=== PATIENT | female | born 1945 | race African-American/Black ===

== ENCOUNTER 2020-07-16 22:20 | Inpatient (IN) | payer MEDICARE, MEDICAID ==
[~2020-07-16] VITALS: Ht 167.6 cm; Wt 105.7 kg
--- NOTE | 2020-07-16 22:40 | NUR ---
THE PATIENT [id number] FROM [place] C/O GENERALIZED BODY PAIN RAITING 09/04. THE PATIENT IS AAO X3. DENIES SOB. RESPIRATION REGULAR AND UNLABORED. THE PATIENT PLACED ON A MONITOR. WARM BLANKET PROVDIED FOR COMFORT. WILL CONTINUE TO MONITOR.
[2020-07-16] MEDS ORDERED: ONDANSETRON HCL/PF 4 MG/2 ML VIAL IVP ONE (23:00)
[2020-07-16] MEDS ORDERED: hydrALAZINE HCL IV 20 MG VIAL IV ONE (23:00)
[2020-07-16] MEDS ORDERED: PANTOPRAZOLE 40 MG VIAL IV ONE (23:00)
[2020-07-16] MEDS ORDERED: MAG HYDROX/AL HYDROX/SIMETH 30 ML UDC PO ONE (23:00)
[2020-07-16] MEDS ORDERED: MAG HYDROX/AL HYDROX/SIMETH 30 ML UDC ONE (23:53)
[2020-07-16] MEDS ORDERED: ONDANSETRON HCL/PF 4 MG/2 ML VIAL ONE (23:53)
[2020-07-16] MEDS ORDERED: PANTOPRAZOLE 40 MG VIAL ONE (23:53)
[2020-07-17 00:01] LABS: BASOPHILS % (AUTO) 0.9 % (0.0-2.0); HEMATOCRIT 32 % (33-45); HEMOGLOBIN 10.7 g/dL (11.5-14.8); LYMPHOCYTES # (AUTO) 0.8 /CMM (0.8-4.8); LYMPHOCYTES % (AUTO) 16.3 % (20.0-44.0); MEAN CORPUSCULAR HGB CONC 33 g/dl (31.0-36.0); MEAN CORPUSCULAR VOLUME 88 fL (82-100); MONOCYTES # (AUTO) 0.5 /CMM (0.1-1.30); MONOCYTES % (AUTO) 9.9 % (2.0-12.0); NEUTROPHILS # (AUTO) 3.7 /CMM (1.8-8.9); NEUTROPHILS % (AUTO) 70.9 % (43.0-81.0); PLATELET COUNT (AUTO) 231 /CMM (150-450); RED BLOOD CELL COUNT(AUTO) 3.66 MIL/uL (4.0-5.2); WHITE BLOOD COUNT (AUTO) 5.2 K/uL (4.3-11.0)
[2020-07-17 00:11] LABS: CALCIUM, SERUM 9.4 mg/dL (8.5-10.1); CARBON DIOXIDE 28 mmol/L (21-32); CHLORIDE 108 mmol/L (98-107); CREATININE 0.7 mg/dL (0.6-1.3); GLUCOSE 118 mg/dL (74-106); POTASSIUM 3.1 mmol/L (3.5-5.1); SODIUM SERUM 144 mmol/L (136-145); UREA NITROGEN, BLOOD 12 mg/dL (7-18)
[2020-07-17 00:21] LABS: D-DIMER 3.91 mg/L(FEU (0.17-0.50)
[2020-07-17 00:23] LABS: B-TYPE NATRIURETIC PEPTIDE 506 PG/ML (0-125); LIPASE 143 U/L (73-393)
[2020-07-17] MEDS ORDERED: IOHEXOL-350 100 ML VIAL IV ONE (00:33)
[2020-07-17] MEDS ORDERED: IV NS 0.9% 250 ML IV ONE (00:33)
--- NOTE | 2020-07-17 00:38 | NUR ---
brought to ct
[2020-07-17] MEDS ORDERED: POTASSIUM CHLORIDE 20 MEQ TAB.PRT.SR PO ONE ×2 (01:30→04:04)
[2020-07-17] MEDS ORDERED: ACETAMINOPHEN 325 MG TABLET PO PRN (01:30)
[2020-07-17] MEDS ORDERED: MAG HYDROX/AL HYDROX/SIMETH 30 ML UDC PO PRN (01:30)
[2020-07-17] MEDS ORDERED: ONDANSETRON HCL/PF 4 MG/2 ML VIAL IVP PRN (01:30)
[2020-07-17] MEDS ORDERED: TEMAZEPAM 15 MG CAPSULE PO PRN (01:30)
[2020-07-17] MEDS ORDERED: MAGNESIUM HYDROXIDE 30 ML UDC PO PRN (01:30)
[2020-07-17] MEDS ORDERED: Z GUARD REMEDY 2 OZ OINT TP PRN (01:30)
--- NOTE | 2020-07-17 01:52 | NUR ---
tele bed: [id number]-
--- NOTE | 2020-07-17 02:38 | NUR ---
REPORT GIVEN TO ELISSA SAAVEDRA FOR [facility]
--- NOTE | 2020-07-17 03:00 | NUR ---
RN OPENING NOTE ADMIT PATIENT FORM ER ALERT ORIENTED X4 WITH DIAGNOSIS:CHEST PAIN,POSSIBLE ACS,SECONDARY HYPOKALEMIA. VERBALLY RESPONSIVE NO SOB NOT ACUTE DISTRESS NOTED,ON ROOM AIR O2:98% IV SITE IS ON RIGHT HAND G 22 INTACT PATENT,KEEP CALL LIGHT WITHIN REACH,BED IN LOW POSITION,AND LOCKED CONTINUE TO MONITOR.
--- NOTE | 2020-07-17 03:07 | NUR ---
PT TRANSFERED PER ACLS PROTOCOL
[2020-07-17 04:00] VITALS: BP 118/56
--- NOTE | 2020-07-17 06:48 | NUR ---
RN CLOSING NOTE PATIENT REMAINS ON ALERT ORIENTED X4 VERBALLY RESPONSIVE NO SOB NOT ACUTE DISTRESS NOTED,ON ROOM AIR O2:98%,IV SITE IS RIGHT HAND INTACT PATENT KEPT CLEAN AND DRY ALL THE TIME,ALL DUE MEDS GIVEN KEPT CALL LIGHT WITHIN REACH,ENDORSE NEXT COMING SHIFT FOR CONTINUATION OF CARE.
[2020-07-17] MEDS ORDERED: FURO20TA4 PO (07:21)
[2020-07-17] MEDS ORDERED: GABA-532 PO (07:21)
[2020-07-17] MEDS ORDERED: APIX5TAB PO (07:21)
[2020-07-17] MEDS ORDERED: AMLO2.5T4 PO (07:21)
[2020-07-17] MEDS: PANTOPRAZOLE 40 MG TABLET.DR PO SCH ×2 (07:30→07:45)
[2020-07-17 08:00] VITALS: BP 145/78
[2020-07-17 09:51] LABS: CALCIUM, SERUM 8.7 mg/dL (8.5-10.1); CREATININE 0.7 mg/dL (0.6-1.3); POTASSIUM 3.7 mmol/L (3.5-5.1)
--- NOTE | 2020-07-17 10:06 | NUR ---
RECEIVED REPORT FROM QUENTIN LOZANO FOR [facility].
--- NOTE | 2020-07-17 12:00 | NUR ---
Patient refused 1200 vital signs and 1300 gabapentin
[2020-07-17] MEDS: GABAPENTIN 100 MG CAPSULE PO SCH ×2 (13:00→16:03)
--- NOTE | 2020-07-17 15:40 | NUR ---
Lyft Driver: industrial services worker consult was requested for homelessness. Patient is a 74-year-old, female. Patient was admitted on 07/17/20 due to chest pain. RUTHY met with the patient in her hospital room on [facility]. Patient presented disheveled and lethargic. SW was unable to gather information at this time. RUTHY spoke to the patients QUENTIN Galindo, who mentioned that the patient has provided multiple stories for her admission. RUTHY is unable to gather information at this time due to patient being lethargic and unable to engage in this interview. QUENTIN Galindo also stated that a psychiatry consult has been request for the patient. RUTHY will coordinate with nursing and follow-up at a later time.
[2020-07-17] MEDS: APIXABAN 5 MG TABLET PO SCH (16:03)
[2020-07-17] MEDS: FUROSEMIDE 20 MG TABLET PO SCH (16:03)
--- NOTE | 2020-07-17 16:04 | NUR ---
PATIENT AGITATED AND AGGRESSIVE. ATTEMPTED TO HIT YARELI LU WHEN SHE ATTEMPTED TO TAKE VITAL SIGNS. PATIENT IS REFUSING ALL CARE, REQUESTING TO MOVE TO A DIFFERENT ROOM, STATING SHE HAS GOOD INSURANCE AND IT SHOULD BE ABLE TO GET HER A "BETTER ROOM THAN THIS". INFORMED CHARGE NURSE OF PATIENT'S REQUEST AND AGITATION.
--- NOTE | 2020-07-17 16:21 | NUR ---
PATIENT PREFERS A FEMALE TECH TO PERFORM AN ECHOCARDIOGRAM ON HER. RN WAS ADVISED.
--- NOTE | 2020-07-17 18:10 | NUR ---
PATIENT REFUSED ALL CARE DURING THIS SHIFT. REFUSED NURSING PHYSICAL ASSESSMENT. REFUSED VITAL SIGN CHECKS, REFUSED I&O MONITORING.
[2020-07-18 04:00] VITALS: BP 148/73
[2020-07-18] MEDS: PANTOPRAZOLE 40 MG TABLET.DR PO SCH (07:30)
--- NOTE | 2020-07-18 08:00 | NUR ---
RN Opening note Received patient in bed, AO x 3-4, non compliance, combative, and incoherence, able to responds all stimuli. Pateint refused take vital sign and all medications. Respiratory even and unlabored on room air. Skin is warm to touch, keep clean/dry, refused wound assessment. Kept elevated HOB for ensure airway and aspiration precaution, also lowest bed position for safety. Call light within reach, will continue to monitor.
[2020-07-18] MEDS: GABAPENTIN 100 MG CAPSULE PO SCH ×3 (08:49→17:00)
[2020-07-18] MEDS: APIXABAN 5 MG TABLET PO SCH ×2 (08:49→17:00)
[2020-07-18] MEDS: FUROSEMIDE 20 MG TABLET PO SCH ×2 (08:49→17:00)
[2020-07-18] MEDS: AMLODIPINE BESYLATE 2.5 MG TABLET PO SCH (08:50)
--- NOTE | 2020-07-18 09:40 | NUR ---
patient awake and demanding to have new room,"i have good insurance move me to new room",explained that she is on iso precaution for now ,offered to have morning care ,patient refused,witnessed by primary rn addison,patient verbalizing i will call the board.still reassured she is being taken c/o.awaits psyche eval.will continue to monitor,md aware of pt. refusal to care.call light at reach ,fall risk precaution observed.
--- NOTE | 2020-07-18 13:29 | NUR ---
patient refused blood draw , notified.
--- NOTE | 2020-07-18 13:32 | NUR ---
patient asking again to change room verbalized "there is negative energy in the room",explained that she is on iso precaution.will continue to monitor.
--- NOTE | 2020-07-18 15:45 | NUR ---
Patient AO x 4 just came from ER for new admit but wants to leave with sign AMA, patient stated "No doctor didn't see me and no body telling me that I'm going stay in hospital!" Patient understanding the about risk and consequences involved in leaving the hospital at this time, the benefit of continued treatment and hospitalization. Patient signed AMA, denies any pain or distress. Removed ID band and IV line before patient leave. Addendum: 07/18/20 at 1821 by NORM NIELSEN RN Error
--- NOTE | 2020-07-18 18:14 | NUR ---
RN Closing note Patient in bed, refused due all medication. Patient denies pain or distress. Respiratory even and unlabored on room air, skin is warm to touch, keep clean/dry. Kept elevated HOB for ensure airway and aspiration precaution, also lowest bed position for safety. Call light within reach, will endorse night worker.
--- NOTE | 2020-07-18 19:55 | NUR ---
MS RN NOTE: PATIENT RESTING IN BED, NO ACUTE DISTRESS NOTED. BREATHING EVEN AND UNLABORED, NO SOB NOTED. IV TO RIGHT HAND IN PLACE. BED LOCKED AND IN LOWEST POSITION, CALL LIGHT IN REACH, WILL CONTINUE TO MONITOR THROUGHOUT SHIFT.
--- NOTE | 2020-07-18 21:45 | NUR ---
MS RN NOTE: PATIENT SEEN BY DR. ELIZABETH, PATIENT ANGRY AND REFUSED TO ANSWER MD QUESTIONS. NO NEW ORDERS AT THIS TIME. WILL CONTINUE TO MONITOR THROUGHOUT SHIFT.
--- NOTE | 2020-07-19 01:50 | NUR ---
MS RN NOTE: PATIENT TO BE TRANSFERRED TO [facility], REPORT GIVEN TO DERREK, PATIENT OFF FLOOR IN STABLE CONDITION.
[2020-07-19 02:50] VITALS: BP 144/78
--- NOTE | 2020-07-19 02:50 | NUR ---
MS RN: CONTINUITY OF CARE Patient transferred from [facility] by bed. Patient is A/O x3, oriented to room, unit, staff. Covid 19 Rapid/PCR test resulted negative 07/17/20. Patient is angry with late room transfer. Uncooperative with skin check, BLE edema. Incontinent pads wet and soaked with urine, refused to be changed, education provided with length of time, finally agreed to change pads but "no" to cleanse perineal area. Place call light within reach.
--- NOTE | 2020-07-19 07:02 | NUR ---
MS RN: END OF SHIFT REPORT Patient refused am lab today 07/19/20 declined education, angry behavior, states staff passing bad energy to her. Uncooperative with hygiene care, hostile to staff. Pending Psych consult as patient uncooperative with Dr. Royal during eval yesterday 07/18/20. Will endorse to oncoming RN.
[2020-07-19] MEDS: PANTOPRAZOLE 40 MG TABLET.DR PO SCH (07:30)
[2020-07-19 08:00] VITALS: BP 180/84
--- NOTE | 2020-07-19 08:00 | NUR ---
MS RN OPENING NOTE: RECEIVED PATIENT LYING IN BED, AWAKE, WATCHING TV. A/O X3. PATIENT IS CURRENTLY CLEAN AND DRY. NO PAIN OR RESPIRATORY DISTRESS NOTED. NO COMBATIVE BEHAVIOR NOTED. CALL LIGHT WITHIN REACH. WILL CONTINUE TO MONITOR.
[2020-07-19 08:53] VITALS: BP 180/84
[2020-07-19] MEDS: AMLODIPINE BESYLATE 2.5 MG TABLET PO SCH (08:53)
[2020-07-19] MEDS: APIXABAN 5 MG TABLET PO SCH ×2 (08:56→16:31)
[2020-07-19] MEDS: FUROSEMIDE 20 MG TABLET PO SCH ×2 (09:00→16:31)
[2020-07-19] MEDS: GABAPENTIN 100 MG CAPSULE PO SCH ×3 (09:00→16:31)
--- NOTE | 2020-07-19 11:48 | NUR ---
Material Control Associate note: This SW met with patient today, as a follow-up. Patient is a 74 year old -Russian female. Patient is awake, lying down in her hospital bed, receptive to meeting with this SW. SW attempted to discuss living arrangements and assess patient's needs for community resources, however patient presented with delusional thoughts and tangential speech. 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 SW needed to redirect the patient on several occasions in order to complete this assessment. Patient initially stated she was living with her daughter at [address] [place] [address], however later stated that she moved out 2 years ago and has been living in different hotels in the [facility]. Patient reported that the last hotel she was staying at prior to this hospitalization was the [facility] "off of [facility] Patient stated that she did not have the money to return to the hotel and when SW asked patient about her source of income, patient became agitated and refused to provide that information, stating "that is too personal". SW offered information on shelters and other homeless resources, and patient stated that she did not want to go to a fpc, and declined all the resources SW offered. During this interview, patient's nurse entered the room and placed clean linen on the patient's bed. Patient became agitated and stated "That nurse just brought in all her negative energy....I am channeling her negative energy, it's everywhere now". Patient appeared agitated, and SW offered to return to meet with patient at a later time. Patient expressed agreement. At this time, discharge plans are unclear. SW then met with QUENTIN Meyers, who informed this SW that patient also has a psychiatry consultation. Material Control Associate will follow-up with the patient, as needed, and will work with case management to ensure a safe and proper discharge.
[2020-07-19 12:58] LABS: BASOPHILS # (AUTO) 0.1 /CMM (0.0-0.2); BASOPHILS % (AUTO) 2.8 % (0.0-2.0); EOSINOPHILS % (AUTO) 2.4 % (0.0-6.0); HEMATOCRIT 34 % (33-45); HEMOGLOBIN 11.1 g/dL (11.5-14.8); LYMPHOCYTES # (AUTO) 0.7 /CMM (0.8-4.8); LYMPHOCYTES % (AUTO) 13.1 % (20.0-44.0); MEAN CORPUSCULAR HGB CONC 33 g/dl (31.0-36.0); MEAN CORPUSCULAR VOLUME 88 fL (82-100); MONOCYTES # (AUTO) 0.3 /CMM (0.1-1.30); MONOCYTES % (AUTO) 6.1 % (2.0-12.0); NEUTROPHILS # (AUTO) 4.1 /CMM (1.8-8.9); NEUTROPHILS % (AUTO) 75.6 % (43.0-81.0); PLATELET COUNT (AUTO) 219 /CMM (150-450); RED BLOOD CELL COUNT(AUTO) 3.81 MIL/uL (4.0-5.2); WHITE BLOOD COUNT (AUTO) 5.4 K/uL (4.3-11.0)
[2020-07-19 14:01] LABS: CALCIUM, SERUM 9.1 mg/dL (8.5-10.1); CREATININE 0.6 mg/dL (0.6-1.3); MAGNESIUM 2.1 mg/dL (1.8-2.4); PHOSPHORUS 3.4 mg/dL (2.5-4.9); POTASSIUM 4.1 mmol/L (3.5-5.1)
--- NOTE | 2020-07-19 17:32 | NUR ---
PT PREFERS FEMALE TECH TO PERFORM ECHO. RN ADVISED.
--- NOTE | 2020-07-19 18:47 | NUR ---
MS RN CLOSING NOTE: PATIENT CURRENTLY LYING IN BED, AWAKE, WATCHING TV. A/O X3. PATIENT DID NOT REFUSE LABS THIS AM. REFUSED ALL MEDICATION BUT LUCAS IN AM, REFUSED ALL AFTERNOON MEDICATION STATING IT MAKES HER SLEEPY AND SHE "DOES NOT TAKE ANY MEDICATION AND DOES NOT NEED TO". PATIENT WAS ABLE TO USE BEDSIDE COMMODE WITH MINIMAL ASSISTANCE. SHE IS VERY HOSTILE AT TIMES. DR. ELIZABETH CAME TO ASSESS HER BUT DID NOT SEE HER. NO MEDS ORDERED. SHE IS CURRENTLY CLEAN AND DRY. NO PAIN OR RESPIRATORY DISTRESS NOTED. NO COMBATIVE BEHAVIOR NOTED AT THIS TIME. CALL LIGHT WITHIN REACH. WILL ENDORSE TO LICENSED WEIGHER NURSE.
--- NOTE | 2020-07-19 20:00 | NUR ---
RN NOTES Received pt. sleeping but arousable, refused vital signs, refused care, pt. stated " Don't want anybody to bother me", call light within reach, siderailsupx2, will continue to monitor
--- NOTE | 2020-07-20 06:17 | NUR ---
RN NOTES awake, not in distress, refused morning care, no pain noted, not in distress, call light within reach, siderialsupx2, pt. needs attended
--- NOTE | 2020-07-20 07:15 | NUR ---
MS RN OPENING NOTE PATIENT ALERT, SITTING IN BED. ABLE TO MAKE NEEDS KNOWN. PATIENT REFUSED MORNING VITAL SIGNS, AM LABS, AND SCHEDULED ECHO. SAFETY PRECAUTIONS IN PLACE. ENCOURAGED PATIENT TO USE CALL LIGHT IF IN NEED. WILL CONTINUE TO MONITOR.
[2020-07-20] MEDS: PANTOPRAZOLE 40 MG TABLET.DR PO SCH (07:30)
[2020-07-20] MEDS: GABAPENTIN 100 MG CAPSULE PO SCH ×3 (09:00→17:00)
[2020-07-20] MEDS: FUROSEMIDE 20 MG TABLET PO SCH ×2 (09:00→17:00)
[2020-07-20] MEDS: AMLODIPINE BESYLATE 2.5 MG TABLET PO SCH (09:00)
[2020-07-20] MEDS: APIXABAN 5 MG TABLET PO SCH ×2 (09:00→17:00)
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
--- NOTE | 2020-07-20 10:00 | NUR ---
MS RN NOTE 911 CALLED. [employer] CAME AND INTERVIEW PATIENT WELL ME (RN), CHARGE NURSE MAXWELL FRIAS, AND MADONNA (ELECTRONIC PLOTTING SYSTEM OPERATOR).
--- NOTE | 2020-07-20 11:00 | NUR ---
MS RN NOTE IVON CRISIS TEAM CALLED BY CHARGE NURSE ALTAGRACIA. PATIENT ASSESSED BY IVON.
--- NOTE | 2020-07-20 15:05 | NUR ---
MS RN NOTE: 5150 PATIENT PUT ON 5150 HOLD BY IVON CRISIS TEAM AT 1505 TODAY (07/20/20).
--- NOTE | 2020-07-20 17:45 | NUR ---
MS RN NOTE CHECKED ON PATIENT, AT FIST WAS CALM AND EATING DINNER. I ASKED IF SHE WANTED TO TAKE HER MEDICATIONS, REPLIED WITH " HONEY, I'VE ALREADY TAKEN MY MEDICATIONS ", I ASKED PATIENT WHICH MEDICATIONS SHE TOOK AND WHO GAVE THEM I HAVE NOT GIVEN HER ANY MEDICATIONS FOR TODAY SINCE SHE REFUSED THIS MORNING AND AFTERNOON. PATIENT PROCEEDED TO LOOK FOR SOMETHING IN HER PURSE AND TOOK OUT A MEDICINE BOTTLE THAT WAS AMLODIPINE. THEN ASKED HER IF SHE HAD ANY OTHER MEDICATIONS SHE SAYS THAT " YES ALL MY MEDICATIONS ARE IN MY PURSE" WHILE SHOWING ME A ZIPLOC BACK WITH A FEW MORE MEDICATION BOTTLES. I ASKED HER IF I COULD SEE MEDICATION BOTTLES SO THAT WE COULD SHOW THEM TO OUR PHARMACY AND THAT WE COULD GIVE HER THE MEDICATIONS FROM OUR PHARMACY INSTEAD. SHE THEN SAYS "DON'T BRING YOUR NEGATIVE ENERGY HERE", PATIENT BECOMING COMBATIVE, AND TOLD ME TO MOVE AWAY FROM HER BED SINCE I WAS HOLDING ON TO THE FOOT OF HER BED. SHE SAYS THAT I AM "PLANTING NEGATIVE ENERGY ON HER AND THAT PEDRO LUIS KNOWS WHAT I AM DOING". TALKED TO HER CALMLY AND I ASKED HER ONE MORE TIME IF I COULD SEE HER MEDICATIONS, SHE SHOUTED AT ME TO "GET OUT" AND "NO ONE ELSE NEEDS TO SEE MY MEDICATIONS BUT ME". CHARGE NURSE NOTIFIED. TRAVELING FREIGHT AGENT NOTIFIED, CAME WITH SECURITY AND CONFISCATED ALL THE BELONGINGS. DR. HOPKINS NOTIFIED WITH ORDER OF FAITH FREEMAN.
--- NOTE | 2020-07-20 19:00 | NUR ---
MS RN NOTE PATIENT STILL ANGRY SHOUTING TO GIVE HER PURSE BACK. 1:1 SITTER PRESENT. WILL ENDORSE TO [place] CONST[facility] FOR [place].
--- NOTE | 2020-07-20 20:00 | NUR ---
RN NOTES Received pt. awake on bed, refused vital sign, refused care, sitter at bedside, no pain noted, no SOB, siderailsupx2, will continue to monitor
--- NOTE | 2020-07-20 21:00 | NUR ---
RN NOTES PT. is verbally responsive, refused evening care
--- NOTE | 2020-07-21 06:43 | NUR ---
RN NOTES Patient still refusing to have morning care,s still verbally abusive , doesn't want listen to the importance an benefits of nursing care
[2020-07-21 06:58] LABS: BASOPHILS % (AUTO) 0.8 % (0.0-2.0); EOSINOPHILS % (AUTO) 2.5 % (0.0-6.0); HEMATOCRIT 35 % (33-45); HEMOGLOBIN 11.8 g/dL (11.5-14.8); LYMPHOCYTES # (AUTO) 0.8 /CMM (0.8-4.8); LYMPHOCYTES % (AUTO) 18.4 % (20.0-44.0); MEAN CORPUSCULAR HGB CONC 34 g/dl (31.0-36.0); MEAN CORPUSCULAR VOLUME 88 fL (82-100); MONOCYTES # (AUTO) 0.5 /CMM (0.1-1.30); MONOCYTES % (AUTO) 11.9 % (2.0-12.0); NEUTROPHILS % (AUTO) 66.4 % (43.0-81.0); PLATELET COUNT (AUTO) 217 /CMM (150-450); RED BLOOD CELL COUNT(AUTO) 4.02 MIL/uL (4.0-5.2); WHITE BLOOD COUNT (AUTO) 4.5 K/uL (4.3-11.0)
[2020-07-21 07:21] LABS: CREATININE 0.7 mg/dL (0.6-1.3); MAGNESIUM 2.2 mg/dL (1.8-2.4); POTASSIUM 4.1 mmol/L (3.5-5.1)
[2020-07-21] MEDS: PANTOPRAZOLE 40 MG TABLET.DR PO SCH (07:30)
--- NOTE | 2020-07-21 07:38 | NUR ---
MS/RN OPENING NOTE RECEIVED PATIENT FROM GRANITE CUTTER NURSE. PATIENT AWAKE LAYING IN HOSPITAL BED. A/O X3 PATIENT, PATIENT APPEARS TO BE AGITATED, NON COMPLAINT PER GRANITE CUTTER REPORT. PATIENT ON ROOM AIR, NO SOB NOTED, BREATHING EVEN, NON LABORED. SAFETY MEASURES IN PLACE, BED LOCKED AND IN LOWEST POSITION, CALL LIGHT WITHIN REACH. WILL CONTINUE TO MONITOR AND ENSURE SAFETY. Addendum: 07/21/20 at 0748 by KEITH PA RN INCORRECT PATIENT Addendum: 07/21/20 at 0749 by KEITH PA RN AMEND THE AMEND, CORRECT PATIENT.
[2020-07-21] MEDS: GABAPENTIN 100 MG CAPSULE PO SCH ×2 (08:30→13:12)
[2020-07-21] MEDS: FUROSEMIDE 20 MG TABLET PO SCH (08:30)
[2020-07-21] MEDS: APIXABAN 5 MG TABLET PO SCH (08:55)
[2020-07-21] MEDS: AMLODIPINE BESYLATE 2.5 MG TABLET PO SCH (08:56)
--- NOTE | 2020-07-21 09:43 | NUR ---
MS/RN NOTE PATIENT REFUSED ALL MORNING MEDICATIONS EXCEPT FOR ELIQUES, PATIENT STATES SHE DOES NOT TAKE THE OTHER MEDICATIONS EXCEPT OF THE ELIQUES.
[2020-07-21] MEDS ORDERED: ALLA266C2 TP (14:39)
[2020-07-21] MEDS ORDERED: MAG30ORA PO (14:39)
[2020-07-21] MEDS ORDERED: MAGN400O6 PO (14:39)
[2020-07-21] MEDS ORDERED: PANT40TA2 PO (14:39)
[2020-07-21] MEDS ORDERED: ACET-868 PO (14:39)
--- NOTE | 2020-07-21 15:11 | NUR ---
MS/RN DISCHARGED PATIENT WAS DISCHARGE TO [facility] IN STABLE CONDITION. PATIENT DID NOT HAVE IV ACCESS, NAME BAND REMOVED. ALL PERSONAL BELONGINGS ACCOUNTED FOR ON BELONGINGS LIST. REPORT WAS GIVEN TO FRANKLIN IN GPS. COPY OF EXIT CARE PLACED IN CHART, COPY OF 5150 IN CHART. EXIT CARE/5150 PAPER WAS GIVEN TO FRANKLIN IN GPS ON TRANSFER. PATIENT WAS AGITATED UPON TRANSFER, SHEKHAR FROM GPS AND SECURITY HAD TO COME TO ASSIST ON PATIENT TRANSFER. PATIENT ARRIVED TO [facility] UNIT FLOOR IN STABLE CONDITION.
== END 2020-07-21 13:55 | DRG 305 ==
LOC: ER 22:22 → TELE1 07-17 01:54 → MEDSG1 07-18 11:55 → MED 07-19 01:51
PROVIDERS: ADMIT Nurse Practitioner Acute Care; ATTEND Student in an Organized Health Care Education/Training Program
DX: I16.0 Hypertensive urgency (principal); M94.0 Chondrocostal junction syndrome [Tietze]; Z59.0 Homelessness; Z90.49 Acquired absence of other specified parts of digestive tract; E87.6 Hypokalemia; R60.9 Edema, unspecified; Z88.0 Allergy status to penicillin; Z88.2 Allergy status to sulfonamides; Z86.718 Personal history of other venous thrombosis and embolism; Z20.822 Contact with and (suspected) exposure to COVID-19
CPT/HCPCS: 36415; 71045-TC; 80048-TC; 83690-TC; 83735-TC; 83880; 84100-TC; 84484-TC; 85025-TC; 85378-TC; 85730-TC; 87081-TC; C9113; C9803; G0378; J2405; J7050; Q9967; U0003

== ENCOUNTER 2020-07-21 14:25 | Inpatient (IN) | payer MEDICARE, MEDICAID ==
[~2020-07-21] VITALS: Ht 167.6 cm; Wt 97.5 kg
[~2020-07-21 14:25] MED LIST: AMLO2.5T4 PO; APIX5TAB PO; FURO20TA4 PO; GABA-532 PO
[2020-07-21] MEDS ORDERED: MAG30ORA PO (14:39)
[2020-07-21] MEDS ORDERED: MAGN400O6 PO (14:39)
[2020-07-21] MEDS ORDERED: ALLA266C2 TP (14:39)
[2020-07-21] MEDS ORDERED: ACET-868 PO (14:39)
[2020-07-21] MEDS ORDERED: PANT40TA2 PO (14:39)
[2020-07-21] MEDS ORDERED: BLOOD SUGAR DIAGNOSTIC 1 EACH STRIP IN ONE (15:30)
[2020-07-21] MEDS ORDERED: MAGNESIUM HYDROXIDE 30 ML UDC PO PRN ×2 (15:30→16:30)
[2020-07-21] MEDS ORDERED: MAG HYDROX/AL HYDROX/SIMETH 30 ML UDC PO PRN ×2 (15:30→16:30)
[2020-07-21 16:00] VITALS: BP 127/87
[2020-07-21] MEDS ORDERED: Z GUARD REMEDY 2 OZ OINT TP PRN (16:30)
[2020-07-21] MEDS ORDERED: ACETAMINOPHEN 325 MG TABLET PO PRN (16:30)
[2020-07-21] MEDS: GABAPENTIN 100 MG CAPSULE PO SCH (16:38)
[2020-07-21] MEDS: APIXABAN 5 MG TABLET PO SCH (16:39)
[2020-07-21] MEDS: FUROSEMIDE 20 MG TABLET PO SCH (16:55)
--- NOTE | 2020-07-21 17:16 | NUR ---
GPS/RN-ADMISSION NOTES ADMITTED A 74 YEARS OLD FEMALE PATIENT FROM [facility].PATIENT ON 5150 HOLD FOR DTO/GD ADULT. UPON FACE TO FACE INTERVIEW WITH THE PATIENT ALERT TO NAME ONLY, HYPERVERBAL,REFUSED TO ANSWER SOME QUESTION,EASILY ANGRY. PATIENT DENIES SI/HI AT THIS TIME. REFUSED FULL BODY ASSESSMENT.REFUSED TO SIGN ADMISSION PAPERS. PATIENT WAS ORIENTED IN THE UNIT AND UNIT POLICIES. NO FAMILY TO NOTIFY ON THE ADMISSION. PATIENT'S RIGHT BOOKLET WAS GIVEN TO THE PATIENT. MRSA SWAB NOT DONE DUE TO REFUSAL.DR. ELIZABETH ( PSYCHIATRIST) AND DR. MARTIN ( FERMENTOLOGIST) MADE AWARE OF THE ADMISSION AND DID RECONCILE PT. MEDICATIONS. WILL ENDORSE TO INCOMING SHIFT FOR CONTINUITY OF CARE.
--- NOTE | 2020-07-21 18:30 | NUR ---
GPS/RN-NOTES PATIENT SLEEPING IN BED WITH BREATHING EVEN AND NONLABORED EASILY AROUSED.NO ACUTE DISTRESS NOTED. WILL ENDORSE TO INCOMING NURSE FOR CONTINUITY OF CARE.
[2020-07-21 20:03] VITALS: BP 128/72
[2020-07-21 20:26] VITALS: BP 128/72
[2020-07-21] MEDS: risperiDONE 1 MG TABLET PO SCH (22:00)
--- NOTE | 2020-07-21 22:15 | NUR ---
RN NOTE: MEDICATION REFUSAL PATIENT SEEN BBY DR. ELIZABETH & ASSESSED WITH NEW ORDERS TO START RISPERDAL & DEPAKOTE. PATIENT REFUSED RISPERDAL 1 MG SCHEDULED AT THIS TIME, PT. STATED," TAKING MEDICINE IS AGAINST MY LIZZY, MY GOD TELLS ME NOT TO TAKE ANYTHING, LOOK, YOU ARE RELEASING NEGATIVE ENERGY TOUCHING MY BED." WHEN EXPLAINED RISKS & BENEFITS OF TAKING MEDICINE PT. STATED," I REFUSE TO TAKE ANY MEDICINE." PT. IS VERY PARANOID & DELUSIONAL AT THIS TIME. CHARGE NURSE MADE AWARE.
--- NOTE | 2020-07-22 06:21 | NUR ---
REFUSED AM LABS PATIENT REFUSED AM LABS TODAY DESPITE OF EXPLANATIONS, VERY SUSPICIOUS, PARANOID, DELUSIONAL & UNCOOPERATIVE.
[2020-07-22] MEDS: PANTOPRAZOLE 40 MG TABLET.DR PO SCH (07:30)
[2020-07-22] MEDS: ACETAMINOPHEN 325 MG TABLET PO PRN (07:54)
[2020-07-22 08:00] VITALS: BP 150/104
[2020-07-22] MEDS: APIXABAN 5 MG TABLET PO SCH ×2 (08:39→16:28)
[2020-07-22] MEDS: DIVALPROEX SODIUM 250 MG TABLET.DR PO SCH ×3 (08:39→16:25)
[2020-07-22] MEDS: AMLODIPINE BESYLATE 2.5 MG TABLET PO SCH (08:40)
[2020-07-22] MEDS: GABAPENTIN 100 MG CAPSULE PO SCH ×3 (08:40→16:25)
[2020-07-22] MEDS: FUROSEMIDE 20 MG TABLET PO SCH ×2 (08:40→16:25)
[2020-07-22] MEDS: risperiDONE 1 MG TABLET PO SCH ×2 (10:00→22:00)
--- NOTE | 2020-07-22 13:00 | NUR ---
pt.endorsed to me from lindsay amezquita.resting in bed.
[2020-07-22 16:00] VITALS: BP 158/78
--- NOTE | 2020-07-22 16:31 | NUR ---
RN-CO: PATIENT REFUSED ALL PM MEDICATIONS EXCEPT ELIQUIS WHICH I WAS ABLE TO CONVINCE HER THAT THE MEDICATION IS TO PREVENT BLOOD CLOT.
--- NOTE | 2020-07-22 18:00 | NUR ---
no change in status.
--- NOTE | 2020-07-22 20:05 | NUR ---
RN NOTE: REFUSED VITALS PATIENT IS VERY UNCOOPERATIVE WITH PLAN OF CARE. PT. 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 IS PREOCCUPIED, VERY DELUSIONAL & PARANOID.
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
[2020-07-23] MEDS: PANTOPRAZOLE 40 MG TABLET.DR PO SCH (07:30)
[2020-07-23 08:00] VITALS: BP 124/55
[2020-07-23] MEDS: FUROSEMIDE 20 MG TABLET PO SCH ×2 (08:22→16:46)
[2020-07-23] MEDS: APIXABAN 5 MG TABLET PO SCH ×2 (08:22→16:46)
[2020-07-23] MEDS: DIVALPROEX SODIUM 250 MG TABLET.DR PO SCH ×3 (08:22→16:46)
[2020-07-23] MEDS: GABAPENTIN 100 MG CAPSULE PO SCH ×3 (08:23→16:46)
[2020-07-23] MEDS: AMLODIPINE BESYLATE 2.5 MG TABLET PO SCH (08:23)
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
[2020-07-23] MEDS: risperiDONE 1 MG TABLET PO SCH ×2 (10:00→22:00)
[2020-07-23 16:00] VITALS: BP 120/65
--- NOTE | 2020-07-23 21:50 | NUR ---
GPS-RN NOTES: PATIENT REFUSED WEEKLY SKIN BODY ASSESSMENT.
--- NOTE | 2020-07-23 22:15 | NUR ---
GPS-RN NOTES: MEDICATION REFUSAL PATIENT REFUSED TO TAKE RISPERDAL SCHEDULED FOR TONIGHT. EDUCATED PATIENT REGARDING MEDICATION COMPLIANCE BUT PT CONTINUED TO REFUSE. WILL CONTINUE TO MONITOR.
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
[2020-07-24] MEDS: PANTOPRAZOLE 40 MG TABLET.DR PO SCH (07:30)
[2020-07-24] MEDS: APIXABAN 5 MG TABLET PO SCH ×2 (08:40→17:16)
[2020-07-24] MEDS: DIVALPROEX SODIUM 250 MG TABLET.DR PO SCH ×3 (08:40→17:00)
[2020-07-24] MEDS: FUROSEMIDE 20 MG TABLET PO SCH ×2 (08:41→17:00)
[2020-07-24] MEDS: AMLODIPINE BESYLATE 2.5 MG TABLET PO SCH (08:41)
[2020-07-24] MEDS: GABAPENTIN 100 MG CAPSULE PO SCH ×3 (08:41→17:00)
--- NOTE | 2020-07-24 08:42 | NUR ---
GPS RN NOTE PATIENT IS VERBALLY AGGRESSIVE, PATIENT REFUSES TO TAKE ALL THE MORNING MEDICATIONS. EDUCATED RISK VS BENEFITS PATIENT CONTINUED TO REFUSE AND VERBALIZED HER AGGRESSION.
[2020-07-24] MEDS: risperiDONE 1 MG TABLET PO SCH ×2 (10:00→22:00)
[2020-07-24 16:00] VITALS: BP 139/86
--- NOTE | 2020-07-24 16:50 | NUR ---
Initial Discharge Plan: Pt states that she lives at [address] [place] [address]; ([phone]). Per pt, she was unable to determine where she would be discharged to. RUTHY will work with the pt and the MD regarding appropriate discharge planning. SW will form a safe and proper discharge.
--- NOTE | 2020-07-24 22:06 | NUR ---
GPS RN NOTES: PATIENT REFUSED 2200 MEDICATION RISPERDAL 1MG/1TAB PO ORDERED. EDUCATION PROVIDED ON THE IMPORTANCE OF MEDICATION COMPLIANCE. PATIENT WAS AGITATED AND HOSTILE TOWARDS STAFF DURING EDUCATION. MEDICATION HAS BEEN WASTED IN OMNICELL. WILL CONTINUE TO MONITOR FOR SAFETY, MOOD AND BEHAVIOR.
--- NOTE | 2020-07-25 06:50 | NUR ---
GPS RN CLOSING NOTES: PATIENT SLEEPING COMFORTABLY IN BED. SLEPT 7HOURS THIS SHIFT. NO S/S OF DISTRESS. RESPIRATION EVEN AND UNLABORED WITH EQUAL RISE AND FALL OF THE CHEST ON ROOM AIR. ALL PATIENT CARE NEEDS HAVE BEEN MET ANTICIPATED. WILL CONTINUE TO MONITOR FOR SAFETY, MOOD AND BEHAVIOR AND ENDORSE TO AM SHIFT.
[2020-07-25 08:00] VITALS: BP 152/72
[2020-07-25] MEDS: FUROSEMIDE 20 MG TABLET PO SCH ×2 (08:57→16:49)
[2020-07-25] MEDS: DIVALPROEX SODIUM 250 MG TABLET.DR PO SCH ×3 (08:57→16:48)
[2020-07-25] MEDS: AMLODIPINE BESYLATE 2.5 MG TABLET PO SCH (08:58)
[2020-07-25] MEDS: PANTOPRAZOLE 40 MG TABLET.DR PO SCH (09:00)
[2020-07-25] MEDS: GABAPENTIN 100 MG CAPSULE PO SCH ×3 (09:00→16:49)
[2020-07-25] MEDS: APIXABAN 5 MG TABLET PO SCH ×2 (09:03→16:49)
[2020-07-25] MEDS: risperiDONE 1 MG TABLET PO SCH (10:00)
--- NOTE | 2020-07-25 11:25 | NUR ---
Individual Intervention: SW met with the pt at bedside and discussed her discharge placement. 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 SW attempted to discuss intermediate placement so that the pt can receive physical therapy but the pt adamantly refused and stated that she needed to speak to her children. SW handed her the phone and informed the nurses to get her cell phone so she can write down some numbers.
--- NOTE | 2020-07-25 16:16 | NUR ---
PT. DR GISSELL, CLARA AWARE.NO INJECTIONS ORDERED OF YET.
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
[2020-07-25 20:00] VITALS: BP 107/64
--- NOTE | 2020-07-25 20:30 | NUR ---
GPS RN NOTES: DR ELIZABETH EXPLAINED TO PATIENT SHE HAS BEEN RIESED. ORDERED HALDOL 0.2ML IM IF PATIENT REFUSES HALDOL 1MG PO.
[2020-07-25] MEDS ORDERED: HALOPERIDOL LACTATE INJ 5 MG/ML VIAL IM PRN (20:47)
[2020-07-25] MEDS: HALOPERIDOL 1 MG TABLET PO SCH (21:07)
--- NOTE | 2020-07-25 21:09 | NUR ---
GPS RN NOTES: PATIENT TOOK HALDOL 1MG PO AFTER EDUCATION THAT SHE WILL GET HALDOL 0.2ML IM IF SHE REFUSES PO BECAUSE SHE IS NOW RIESED.
[2020-07-26] MEDS: ACETAMINOPHEN 325 MG TABLET PO PRN (03:52)
--- NOTE | 2020-07-26 04:11 | NUR ---
GPS RN NOTES: PATIENT ASKED FOR TYLENOL D/T KNEE PAIN. TYLENOL 325MG 2TABS/650MG GIVEN PO AT 0352. PATIENT IS CURRENTLY LAYING DOWN AND CALM. WILL CONTINUE TO MONITOR.
--- NOTE | 2020-07-26 06:46 | NUR ---
GPS RN CLOSING NOTES: PATIENT IN ROOM AWAKE A/O X2. SLEPT 6HOURS THIS SHIFT. EASILY AGITATED, SCREAMS AT STAFF DURING Q15 ROUNDS. NO S/S OF DISTRESS. RESPIRATION EVEN AND UNLABORED WITH EQUAL RISE AND FALL OF THE CHEST ON ROOM AIR. ALL PATIENT CARE NEEDS HAVE BEEN MET ANTICIPATED. BED IN LOWEST POSITION AND LOCKED WITH SIDE RAILS UP X2. WILL CONTINUE TO MONITOR FOR SAFETY, MOOD AND BEHAVIOR AND ENDORSE TO AM SHIFT.
[2020-07-26] MEDS: PANTOPRAZOLE 40 MG TABLET.DR PO SCH (07:30)
--- NOTE | 2020-07-26 08:00 | NUR ---
REFUSED AM VITALS.
[2020-07-26] MEDS: HALOPERIDOL 1 MG TABLET PO SCH ×3 (08:06→17:22)
[2020-07-26] MEDS: GABAPENTIN 100 MG CAPSULE PO SCH ×3 (08:07→17:00)
[2020-07-26] MEDS: DIVALPROEX SODIUM 250 MG TABLET.DR PO SCH ×3 (08:07→17:00)
[2020-07-26] MEDS: APIXABAN 5 MG TABLET PO SCH ×2 (08:07→17:21)
[2020-07-26] MEDS: AMLODIPINE BESYLATE 2.5 MG TABLET PO SCH (08:07)
[2020-07-26] MEDS: FUROSEMIDE 20 MG TABLET PO SCH ×2 (08:07→17:00)
--- NOTE | 2020-07-26 08:09 | NUR ---
PLYWOOD PATCHER IN TO SEE PT. ,PT. REFUSED ALL PO MEDS EXCEPT FOR HALDOL,STATES SHE DID NOT WANT INJECTION.
--- NOTE | 2020-07-26 15:21 | NUR ---
Individual Intervention: SW met with the pt at bedside and discussed her discharge plan. Pt states that she used to live in [place] and she has 6 children who are all grown ups but they all own businesses like her. 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 SW stated that the plan is to discharge the pt to a SNF and from there she will be assisted in finding more resaw tailer housing. Pt states that she will have to think about that plan.
[2020-07-26 16:00] VITALS: BP 123/90
--- NOTE | 2020-07-26 16:27 | NUR ---
REFUSING ALL MEDS BUT HALDOL. AWARE.
[2020-07-27] MEDS: PANTOPRAZOLE 40 MG TABLET.DR PO SCH (07:30)
[2020-07-27 08:00] VITALS: BP 131/99
[2020-07-27] MEDS: GABAPENTIN 100 MG CAPSULE PO SCH ×3 (09:00→16:21)
[2020-07-27] MEDS: DIVALPROEX SODIUM 250 MG TABLET.DR PO SCH ×3 (09:00→16:21)
[2020-07-27] MEDS: AMLODIPINE BESYLATE 2.5 MG TABLET PO SCH (09:00)
[2020-07-27] MEDS: FUROSEMIDE 20 MG TABLET PO SCH ×2 (09:00→16:21)
[2020-07-27] MEDS: HALOPERIDOL 1 MG TABLET PO SCH ×3 (09:13→16:13)
[2020-07-27] MEDS: APIXABAN 5 MG TABLET PO SCH ×2 (09:19→16:20)
--- NOTE | 2020-07-27 09:20 | NUR ---
GPS/RN-NOTES PATIENT SELECTIVE WITH MEDICATIONS. TOOK HALDOL 1MG P.O AND ELIQUIS 5MG P.O ONLY. EXPLAIN RISK AND BENEFITS OF MEDICATIONS BUT PATIENT GETS ARGUMENTATIVE AND ANGRY WITH THE NSH TEACHER.OFFERED X3
--- NOTE | 2020-07-27 14:25 | NUR ---
Group Note: SW encouraged the pt to attend group therapy on discharge planning and the pt refused. 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
[2020-07-27 16:00] VITALS: BP 123/65
[2020-07-27 19:48] VITALS: BP 131/73
[2020-07-27 19:53] VITALS: BP 131/73
[2020-07-28] MEDS: PANTOPRAZOLE 40 MG TABLET.DR PO SCH (07:30)
--- NOTE | 2020-07-28 07:46 | NUR ---
GPS/RN-NOTES PATIENT REFUSED PROTONIX 40MG P.O ,EXPLANATIONS RISK AND BENEFITS, PATIENT STATED" I DON'T HAVE PROBLEMS WITH MY STOMACH". OFFER X3.
[2020-07-28 08:00] VITALS: BP 159/88
[2020-07-28] MEDS: HALOPERIDOL 1 MG TABLET PO SCH ×2 (08:07→13:00)
[2020-07-28] MEDS: APIXABAN 5 MG TABLET PO SCH ×2 (08:07→17:35)
[2020-07-28] MEDS: DIVALPROEX SODIUM 250 MG TABLET.DR PO SCH ×3 (08:17→17:00)
[2020-07-28] MEDS: FUROSEMIDE 20 MG TABLET PO SCH ×2 (08:17→17:00)
[2020-07-28] MEDS: GABAPENTIN 100 MG CAPSULE PO SCH ×3 (08:17→17:00)
[2020-07-28] MEDS: AMLODIPINE BESYLATE 2.5 MG TABLET PO SCH (08:18)
--- NOTE | 2020-07-28 08:20 | NUR ---
GPS/RN-NOTES PATIENT REFUSED 0900AM MEDICATIONS INCLUDING HALDOL 5MG P.O EXCEPT ELIQUIS 5MG P.O. EXPLAIN RISK AND BENEFITS OF MEDICATIONS BUT PATIENT GETS ARGUMENTATIVE AND ANGRY THREATENING TO [employer] AND REPORT THE PLATING TANK OPERATOR APPRENTICE TO THE SPORTS ANNOUNCER FOR GIVING AND FORCING HER TO TAKE MEDICATIONS. 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 OFFERED X3 STILL REFUSED. PATIENT IS RIESE HALDOL 5MG IM GIVEN ORDERED.
--- NOTE | 2020-07-28 12:41 | NUR ---
SNF Referral: RUTHY faxed a referral to [facility] with attn to Vale to the fax number: [phone] and to [facility] with attn to Shelby to the fax number: [phone].
--- NOTE | 2020-07-28 13:33 | NUR ---
GPS/RN-NOTES PATIENT REFUSED HALDOL 1MG P.O, HALDOL 2MG IM GIVEN ORDERED. PATIENT IS RIESE.
[2020-07-28] MEDS ORDERED: HALOPERIDOL 5 MG TABLET PO SCH (14:30)
[2020-07-28] MEDS ORDERED: HALOPERIDOL LACTATE INJ 5 MG/ML VIAL IM ONE (14:30)
[2020-07-28 16:00] VITALS: BP 144/58
[2020-07-28] MEDS ORDERED: HALOPERIDOL LACTATE INJ 5 MG/ML VIAL IM PRN (17:00)
[2020-07-28] MEDS: HALOPERIDOL 5 MG TABLET PO SCH (17:30)
--- NOTE | 2020-07-28 21:40 | NUR ---
RN notes Pt refused VS. Offered multiple times. Explained risks and benefits. Pt keep refusing. Pt is non compliant with care, disorganized and easily agitated. Will continue to monitor.
[2020-07-29] MEDS: PANTOPRAZOLE 40 MG TABLET.DR PO SCH (07:30)
[2020-07-29 08:00] VITALS: BP 99/69
[2020-07-29] MEDS: HALOPERIDOL 5 MG TABLET PO SCH ×2 (08:33→21:01)
[2020-07-29] MEDS: DIVALPROEX SODIUM 250 MG TABLET.DR PO SCH ×3 (08:33→17:00)
[2020-07-29] MEDS: GABAPENTIN 100 MG CAPSULE PO SCH ×3 (08:34→17:00)
[2020-07-29] MEDS: FUROSEMIDE 20 MG TABLET PO SCH ×2 (08:39→17:00)
[2020-07-29] MEDS: AMLODIPINE BESYLATE 2.5 MG TABLET PO SCH (08:39)
--- NOTE | 2020-07-29 08:40 | NUR ---
GPS/RN-NOTES PATIENT REFUSED 0900AM MEDICATIONS INCLUDING HALDOL 5MG P.O EXCEPT ELIQUIS 5MG P.O. EXPLAIN RISK AND BENEFITS OF MEDICATIONS BUT PATIENT GETS ARGUMENTATIVE AND ANGRY AT THE VIDEO COORDINATOR. PATIENT IS RIESE HALDOL 5MG IM GIVEN ORDERED.
[2020-07-29] MEDS: APIXABAN 5 MG TABLET PO SCH ×2 (08:42→17:00)
--- NOTE | 2020-07-29 17:17 | NUR ---
GPS/RN-NOTES PATIENT REFUSED ALL 1700 MEDICATIONS. OFFERED X3
--- NOTE | 2020-07-29 18:59 | NUR ---
GPS/RN-NOTES PATIENT SITTING IN BED AWAKE,ALERT GUARDED,NO ACUTE DISTRESS NOTED. WILL ENDORSE TO INCOMING NURSE FOR MONITORING AND CARE.
[2020-07-29 20:02] VITALS: BP 142/78
[2020-07-29 20:11] VITALS: BP 142/78
[2020-07-29 21:15] VITALS: BP 139/75
[2020-07-30] MEDS: ACETAMINOPHEN 325 MG TABLET PO PRN ×2 (00:10→10:53)
--- NOTE | 2020-07-30 00:14 | NUR ---
RN NOTE: PAIN PATIENT C/O GENERALIZED BODY ACHE 07/05, REQUESTED TO GET TYLENOL. PRN TYLENOL 650 MG PO GIVEN. WILL CONTINUE TO MONITOR.
[2020-07-30] MEDS: PANTOPRAZOLE 40 MG TABLET.DR PO SCH (07:30)
[2020-07-30 08:00] VITALS: BP 135/81
[2020-07-30] MEDS: FUROSEMIDE 20 MG TABLET PO SCH ×2 (09:00→17:00)
[2020-07-30] MEDS: DIVALPROEX SODIUM 250 MG TABLET.DR PO SCH ×3 (09:00→17:00)
[2020-07-30] MEDS: GABAPENTIN 100 MG CAPSULE PO SCH ×3 (09:00→17:00)
[2020-07-30] MEDS: AMLODIPINE BESYLATE 2.5 MG TABLET PO SCH (09:00)
[2020-07-30] MEDS: APIXABAN 5 MG TABLET PO SCH ×2 (09:16→17:00)
[2020-07-30] MEDS: HALOPERIDOL 5 MG TABLET PO SCH ×2 (09:18→20:38)
--- NOTE | 2020-07-30 10:54 | NUR ---
RN NOTES PT C/O PAIN ON RIGHT KNEE AFTER SHE TOOK SHOWER. REQUESTED FOR PAIN MEDICATION. PRN TYLENOL 650MG PO GIVEN AT 1053. WILL CONTINUE TO MONITOR
[2020-07-30 16:00] VITALS: BP 129/69
[2020-07-30 20:33] VITALS: BP 162/84
--- NOTE | 2020-07-31 06:07 | NUR ---
RN NOTES: REFUSED SKIN ASSESSMENT PATIENT REFUSED WEEKLY SKIN REASSESSMENT AND PHOTS TAKEN , ENCOURGED ,A DESPITE OF EXPLANATIONS, VERY SUSPICIOUS, PARANOID, DELUSIONAL & UNCOOPERATIVE. WILL CONTINUE WITH CARE.
[2020-07-31] MEDS: PANTOPRAZOLE 40 MG TABLET.DR PO SCH (07:30)
[2020-07-31 08:00] VITALS: BP 156/87
[2020-07-31] MEDS: HALOPERIDOL 5 MG TABLET PO SCH ×2 (08:13→21:30)
[2020-07-31] MEDS: APIXABAN 5 MG TABLET PO SCH ×2 (08:14→16:02)
[2020-07-31] MEDS: DIVALPROEX SODIUM 250 MG TABLET.DR PO SCH ×3 (08:20→16:03)
[2020-07-31] MEDS: AMLODIPINE BESYLATE 2.5 MG TABLET PO SCH (08:20)
[2020-07-31] MEDS: FUROSEMIDE 20 MG TABLET PO SCH ×2 (08:20→16:03)
[2020-07-31] MEDS: GABAPENTIN 100 MG CAPSULE PO SCH ×3 (08:20→16:03)
--- NOTE | 2020-07-31 08:21 | NUR ---
RN NOTE: MEDICATION REFUSAL PT COMPLIANT WITH AM HALDOL AND ELIQUIS. PT REFUSED ALL OTHER AM MEDICAIONS. ATTEMPTED TO EDUCATE PT RE IMPORTANCE OF MEDICATION COMPLIANCE. PT IS RELIGIOUSLY PREOCCUPIED. DIFFICULT TO REDIRECT. VERBALLY AGGRESSIVE AND EASILY AGITATED.
--- NOTE | 2020-07-31 12:48 | NUR ---
RN NOTE: MEDICATION REFUSAL PT REFUSED 1200 DEPAKOTE AND NEURONTIN. ATTEMPTED TO EDUCATE PT RE IMPORTANCE OF MEDICATION COMPLIANCE. PT CONT'D TO REFUSE X 3.
--- NOTE | 2020-07-31 16:04 | NUR ---
RN NOTE: MEDICATION REFUSAL PT REFUSED ALL AM MEDICATIONS EXCEPT ELIQUIS. ATTEMPTED TO EDUCATE PT RE IMPORTANCE OF MEDICATIONS COMPLIANCE. PT CONT'D TO REFUSE X 3. WILL CONT TO MONITOR FOR SAFETY AND BEHAVIOR PER PROTOCOL
[2020-07-31 16:46] VITALS: BP 149/85
[2020-07-31 20:00] VITALS: BP 126/64
[2020-08-01] MEDS: PANTOPRAZOLE 40 MG TABLET.DR PO SCH (07:30)
[2020-08-01 08:00] VITALS: BP 118/52
[2020-08-01] MEDS: HALOPERIDOL 5 MG TABLET PO SCH ×2 (08:11→21:26)
[2020-08-01] MEDS: APIXABAN 5 MG TABLET PO SCH ×2 (08:13→16:58)
[2020-08-01] MEDS: FUROSEMIDE 20 MG TABLET PO SCH ×2 (08:19→16:59)
[2020-08-01] MEDS: DIVALPROEX SODIUM 250 MG TABLET.DR PO SCH ×3 (08:19→16:59)
[2020-08-01] MEDS: GABAPENTIN 100 MG CAPSULE PO SCH ×3 (08:19→16:59)
[2020-08-01] MEDS: AMLODIPINE BESYLATE 2.5 MG TABLET PO SCH (08:19)
--- NOTE | 2020-08-01 08:20 | NUR ---
RN NOTE: MEDICATION REFUSAL PT REFUSED ALL AM MEDICATIONS EXCEPT ELIQUIS AND HALDOL. EDUCATED PT RE IMPORTANCE OF MEDICATION COMPLIANCE. PT CONT'D TO REFUSE X 3. WILL CONT TO MONITOR FOR SAFETY AND BEHAVIOR PER PROTOCOL
[2020-08-01] MEDS: HALOPERIDOL 1 MG TABLET PO SCH (12:10)
--- NOTE | 2020-08-01 12:11 | NUR ---
RN NOTE: MEDICATION REFUSAL PT REFUSED 1300 MEDICATIONS EXCEPT HALDOL. PT SUSPICIOUS OF HALDOL INCREASE. COMPLIANT AFTER ENCOURAGEMENT.
--- NOTE | 2020-08-01 15:45 | NUR ---
Individual Intervention: SW met with the pt and she stated that she spoke to her son who informed her that her brother had . Pt stated that she wanted to be discharged to the hotel soon but was unable to provide an address. SW received permission from the pt to speak to her son.
--- NOTE | 2020-08-01 15:46 | NUR ---
Family Contact: SW contacted the pts son, Cristo ([phone]), and left a voicemail stating that the SW would like to speak to him.
[2020-08-01 16:00] VITALS: BP 131/84
--- NOTE | 2020-08-01 16:59 | NUR ---
RN NOTE: MEDICATION REFUSAL PT REFUSED ALL 1700 MEDICATIONS EXCEPT ELIQUIS. EDUCATED PT RE IMPORTANCE OF MEDICATION COMPLIANCE. PT CONT'D TO REFUSE X 3
[2020-08-01 20:00] VITALS: BP 118/65
[2020-08-02] MEDS: PANTOPRAZOLE 40 MG TABLET.DR PO SCH (07:30)
[2020-08-02 08:00] VITALS: BP 131/99
[2020-08-02] MEDS: HALOPERIDOL 5 MG TABLET PO SCH ×2 (08:24→21:25)
[2020-08-02] MEDS: APIXABAN 5 MG TABLET PO SCH ×2 (08:27→17:26)
[2020-08-02] MEDS: GABAPENTIN 100 MG CAPSULE PO SCH ×3 (08:30→17:00)
[2020-08-02] MEDS: DIVALPROEX SODIUM 250 MG TABLET.DR PO SCH ×3 (08:30→17:00)
[2020-08-02] MEDS: FUROSEMIDE 20 MG TABLET PO SCH ×2 (08:30→17:00)
[2020-08-02] MEDS: AMLODIPINE BESYLATE 2.5 MG TABLET PO SCH (08:30)
--- NOTE | 2020-08-02 08:31 | NUR ---
RN NOTE: MEDICATION REFUSAL PT REFUSED ALL AM MEDICATIONS EXCEPT HALDOL AND ELIQUIS. EDUCATED PT RE IMPORTANCE OF MEDICATION COMPLIANCE. PT CONT'D TO REFUSE MEDICATIONS X 3. WILL CONT TO MONITOR PT FOR SAFETY AND BEHAVIOR PER PROTOCOL.
--- NOTE | 2020-08-02 10:19 | NUR ---
SNF Contact: RUTHY contacted Oralia ([phone]) from [facility] and she stated that the pt was denied due to insurance reasons.
--- NOTE | 2020-08-02 10:20 | NUR ---
SNF Contact: SW contacted Shelby ([phone]) from [facility] who stated that she is going to attempt to get an authorization from the insurance company to accept the pt.
[2020-08-02] MEDS: HALOPERIDOL 1 MG TABLET PO SCH (12:05)
--- NOTE | 2020-08-02 13:08 | NUR ---
RN NOTE: MEDICATION REFUSAL PT REFUSED 1300 DOSE OF DEPAKOT AND GABAPENTIN. EDUCATED PT RE IMPORTANCE OF MEDICATION COMPLIANCE. PT CONT'D TO REFUSE X 3. WILL CONT TO MONITOR FOR SAFETY AND BEHAVIOR PER GPS PROTOCOL
--- NOTE | 2020-08-02 19:30 | NUR ---
RN NOTES RECEIVED PATIENT IN BED RESTING COMFORTABLY, NO S/S OR COMPLAINTS OF PAIN AT THIS TIME. PATIENT IS DISPLAYING NO S/S OF APPARENT DISTRESS AT THIS TIME. PATIENT'S BREATHING IS UNLABORED. PATIENT IS ALERT AND ORIENTED X 1-2 ON ROOM AIR WITH SPO2 100%. PATIENT IS COMPLIANT WITH MEDICATION, DISORGANIZED, RESPONDING TO INTERNAL STIMULI, ANXIOUS AND COOPERATIVE. PATIENT DENIES SUICIDE IDEATIONS AND HOMICIDAL IDEATIONS AT THIS TIME. PATIENT ASSISTED WITH TURNING AND REPOSITIONING Q2HR AND PRN FOR COMFORT AND CIRCULATION. PATIENT HAS NO NEEDS AT THIS TIME. SAFETY MEASURE PROVIDED, PATIENT BED SIDE RAILS UP X 2 FOR SAFETY, BED IS LOCKED AND LOW. WILL CONTINUE TO MONITOR AND ASSESS THROUGHOUT THE SHIFT
[2020-08-02 21:13] VITALS: BP 136/86
[2020-08-03] MEDS: ACETAMINOPHEN 325 MG TABLET PO PRN (01:22)
[2020-08-03] MEDS: PANTOPRAZOLE 40 MG TABLET.DR PO SCH (07:30)
[2020-08-03 08:00] VITALS: BP 118/73
[2020-08-03] MEDS: HALOPERIDOL 5 MG TABLET PO SCH ×2 (08:28→21:04)
[2020-08-03] MEDS: APIXABAN 5 MG TABLET PO SCH ×2 (08:30→16:20)
[2020-08-03] MEDS: DIVALPROEX SODIUM 250 MG TABLET.DR PO SCH ×3 (08:32→16:20)
[2020-08-03] MEDS: GABAPENTIN 100 MG CAPSULE PO SCH ×3 (08:32→16:21)
[2020-08-03] MEDS: AMLODIPINE BESYLATE 2.5 MG TABLET PO SCH (08:32)
[2020-08-03] MEDS: FUROSEMIDE 20 MG TABLET PO SCH ×2 (08:32→16:21)
--- NOTE | 2020-08-03 08:34 | NUR ---
GPS/RN-NOTES SELECTIVE WITH MEDICATIONS. TOOK HALDOL AND ELIQUIS P.O ONLY. EXPLAIN RISK AND BENEFITS.OFFERED X3
[2020-08-03] MEDS: HALOPERIDOL 1 MG TABLET PO SCH (13:45)
--- NOTE | 2020-08-03 14:04 | NUR ---
GPS/RN-NOTES REFUSED ALL 1300MEDICATIONS EXCEPT HALDOL 2MG P.O.
[2020-08-03 16:00] VITALS: BP 105/71
--- NOTE | 2020-08-03 19:35 | NUR ---
RN NOTES RECEIVED PT IN BED SLEEPING COMFORTABLY; PATIENT IN NO S/SX OF ACUTE DISTRESS AT THIS TIME. NO SOB NOTED. PATIENT'S BREATHING IS EVEN AND UNLABORED. PATIENT AROUSABLE TO VERBAL STIMULI, CALM BUT DISORIENTED & CONFUSED. NO SIGNS OF BEHAVIORAL AGGRESSION AT THE TIME OF RECEIVED, NO SUICIDE THOUGHTS AND HOMICIDAL IDEATIONS AT THIS TIME. PATIENT ASSISTED IN TURNING AND REPOSITIONING Q2HR AND PRN FOR COMFORT AND CIRCULATION. SAFETY AND COMFORT MEASURES HAVE BEEN PROVIDED AND IMPLEMENTED. PATIENT BED ALARM IS ON, BED'S SIDE RAILS UP X2 AND BED IS LOCKED AND LOW. . WILL CONTINUE TO MONITOR AND REASSESS FOR ANY CHANGES PER GPS PROTOCOL AND WILL CARRY OUT ANY ONGOING AND ACTIVE MD ORDER
[2020-08-03 21:04] VITALS: BP 113/72
[2020-08-04] MEDS: ACETAMINOPHEN 325 MG TABLET PO PRN (03:10)
[2020-08-04] MEDS: PANTOPRAZOLE 40 MG TABLET.DR PO SCH (07:30)
[2020-08-04 08:00] VITALS: BP 145/74
[2020-08-04] MEDS: HALOPERIDOL 5 MG TABLET PO SCH (08:30)
[2020-08-04] MEDS: APIXABAN 5 MG TABLET PO SCH (08:31)
[2020-08-04 09:00] VITALS: BP 145/74
[2020-08-04] MEDS: FUROSEMIDE 20 MG TABLET PO SCH (09:00)
[2020-08-04] MEDS: GABAPENTIN 100 MG CAPSULE PO SCH ×2 (09:00→12:54)
[2020-08-04] MEDS: AMLODIPINE BESYLATE 2.5 MG TABLET PO SCH (09:00)
[2020-08-04] MEDS: DIVALPROEX SODIUM 250 MG TABLET.DR PO SCH ×2 (09:00→12:54)
--- NOTE | 2020-08-04 10:10 | NUR ---
Dr. Royal gave an order to D/C hold and D/C to [facility] and to follow up with the psych and medical doctors. Psychiatrist ordered to continue same meds.
[2020-08-04] MEDS: HALOPERIDOL 1 MG TABLET PO SCH (12:54)
--- NOTE | 2020-08-04 12:55 | NUR ---
GPS/RN-NOTES REFUSED ALL 1300MEDICATIONS EXCEPT HALDOL 2MG P.O. OFFERED X3
--- NOTE | 2020-08-04 13:58 | NUR ---
Discharge Note: Pt will be discharged to [facility] ([facility]) located at [address] [place] [address]; . Pt will be transported via [facility] at 1PM. does not have anyone to contact regarding the discharge. Upon discharge, the pt appears to be alert and oriented x3 (time, place, and self). Pt appears to be in a euthymic mood and presents with a calm mood. Pt denies both suicidal and homicidal ideation as well as auditory and visual hallucinations. Pt is ambulatory with walker assistance and appears to be well groomed. Pt will continue to be under the care of her psychiatrist, Dr. Royal, located at [address] [place] [address]; and track repair supervisor, Dr. Long, located at [address], [place] [address]; . The homeless waiver and multidisciplinary exit care form were done, printed, signed, and given to the patient.
--- NOTE | 2020-08-04 14:04 | NUR ---
GPS/RN-NOTES DISCHARGE NOTES DR. ELIZABETH ( PSYCHIATRIST) GAVE T.O DISCHARGE ORDER. PATIENT WAS D/C TO [facility] TODAY. DR. HOPKINS (PROFESSOR OF BIOLOGICAL SCIENCES) AWARE AND AGREED OF THE DISCHARGE WITH ORDERS. REPORT WAS GIVEN TO YAMILET FINNEY (DON) (DESK NURSE). PATIENT REFUSED FULL BODY ASSESSMENT PRIOR TO DISCHARGE DESPITE EXPLANATIONS OF HOSPITAL POLICIES. ALSO OFFERED FLU AND PNA VACCINE BUT PATIENT STATED" I DON'T TAKE ANY VACCINE BECAUSE I DON'T NEED IT". PATIENT DID NOT VERBALIZE SI/HI,DENIES VISUAL/AUDITORY HALLUCINATIONS UPON DISCHARGE. PATIENT LEFT THE UNIT IN STABLE CONDITION A/O X2-3 ABLE TO AMBULATE USING WALKER. PATIENT LEFT THE UNIT WITH ALL HER BELONGINGS INCLUDING X1 WHEELCHAIR AND OWN MEDICATIONS. 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 NO FAMILY TO NOTIFY ON THE DISCHARGE.
== END 2020-08-04 14:00 | DRG 751 ==
LOC: GPS 14:25
PROVIDERS: ADMIT Psychiatry & Neurology Psychiatry; ATTEND Student in an Organized Health Care Education/Training Program
DX: F29 Unspecified psychosis not due to a substance or known physiological condition (principal); F03.90 Unspecified dementia, unspecified severity, without behavioral disturbance, psychotic disturbance, mood disturbance, and anxiety; I10 Essential (primary) hypertension; F41.9 Anxiety disorder, unspecified; Z91.81 History of falling; Z59.0 Homelessness; F39 Unspecified mood [affective] disorder; Z86.718 Personal history of other venous thrombosis and embolism; Z79.899 Other long term (current) drug therapy; Z73.6 Limitation of activities due to disability; R53.1 Weakness; R27.8 Other lack of coordination; F32.9 Major depressive disorder, single episode, unspecified
CPT/HCPCS: 97112-TC; 97116-TC; 97530-TC; J1630

== ENCOUNTER 2020-08-06 13:48 | Emergency (ER) | payer MEDICAID, MEDICARE ==
[~2020-08-06] VITALS: Ht 170.2 cm; Wt 104.3 kg
[~2020-08-06 13:48] MED LIST changes: +ACET-868 PO; +ALLA266C2 TP; +MAG30ORA PO; +MAGN400O6 PO; +PANT40TA2 PO
[2020-08-06] MEDS ORDERED: LORA-259 PO (14:27)
[2020-08-06] MEDS ORDERED: DIVA-76 PO (14:27)
[2020-08-06] MEDS ORDERED: HALO2TAB2 PO (14:27)
[2020-08-06] MEDS ORDERED: HALO5TAB8 PO (14:27)
--- NOTE | 2020-08-06 14:44 | NUR ---
Patient awake alert non distress able to follow cammand lab draw obtained and covid swab send to lab .
[2020-08-06 14:57] LABS: BASOPHILS % (AUTO) 0.5 % (0.0-2.0); EOSINOPHILS % (AUTO) 1.7 % (0.0-6.0); HEMATOCRIT 35 % (33-45); HEMOGLOBIN 11.4 g/dL (11.5-14.8); LYMPHOCYTES # (AUTO) 0.8 /CMM (0.8-4.8); LYMPHOCYTES % (AUTO) 13.9 % (20.0-44.0); MEAN CORPUSCULAR HGB CONC 33 g/dl (31.0-36.0); MEAN CORPUSCULAR VOLUME 90 fL (82-100); MONOCYTES # (AUTO) 0.6 /CMM (0.1-1.30); NEUTROPHILS # (AUTO) 4.2 /CMM (1.8-8.9); NEUTROPHILS % (AUTO) 73.9 % (43.0-81.0); PLATELET COUNT (AUTO) 196 /CMM (150-450); RED BLOOD CELL COUNT(AUTO) 3.91 MIL/uL (4.0-5.2); WHITE BLOOD COUNT (AUTO) 5.7 K/uL (4.3-11.0)
--- NOTE | 2020-08-06 15:05 | NUR ---
received a call from the lab regarding covid 19 result "negative". notified and aware
--- NOTE | 2020-08-06 15:08 | NUR ---
Urine obtained and send to lab .
[2020-08-06 15:19] LABS: CALCIUM, SERUM 9.1 mg/dL (8.5-10.1); CARBON DIOXIDE 23 mmol/L (21-32); CHLORIDE 105 mmol/L (98-107); CREATININE 0.8 mg/dL (0.6-1.3); GLUCOSE 106 mg/dL (74-106); POTASSIUM 5.2 mmol/L (3.5-5.1); SODIUM SERUM 139 mmol/L (136-145); UREA NITROGEN, BLOOD 16 mg/dL (7-18)
[2020-08-06 15:23] LABS: ALANINE AMINOTRANSFERASE 20 U/L (12-78); ALBUMIN 3.2 g/dL (3.4-5.0); ALCOHOL, BLOOD < 3 mg/dL (0-0); ALKALINE PHOSPHATASE 99 U/L (46-116); ASPARTATE AMINOTRANSFERASE 14 U/L (15-37); BILIRUBIN,DIRECT 0.1 mg/dL (0.0-0.2); BILIRUBIN,TOTAL 0.3 mg/dL (0.2-1.0); TOTAL PROTEIN, SERUM 7.5 g/dL (6.4-8.2)
[2020-08-06 15:31] LABS: BILIRUBIN,URINE NEGATIVE (NEGATIVE); COLOR,URINE YELLOW (YELLOW); LEUKOCYTE ESTERASE ,URINE NEGATIVE (NEGATIVE); NITRITE, URINE NEGATIVE (NEGATIVE); PH,URINE 5.5 (5.0-8.0); PROTEIN,URINE NEGATIVE (NEGATIVE); UGLUCOSE NEGATIVE (NEGATIVE); UROBILINOGEN,URINE 0.2 EU/dL (0.2)
--- NOTE | 2020-08-06 16:02 | NUR ---
CALLED [facility] REF# [id number] WILL CALL US BACK WITH TRANSFER INFO.
--- NOTE | 2020-08-06 17:30 | NUR ---
Patient denies SI follow commands .
--- NOTE | 2020-08-06 18:37 | NUR ---
DC home intruction given to Eileen LAFLEUR @ [facility] room 104 A .
[2020-08-06 18:39] VITALS: BP 134/77
== END 2020-08-06 18:41 ==
LOC: ER 13:51
DX: R41.82 Altered mental status, unspecified (principal); F91.9 Conduct disorder, unspecified; G93.89 Other specified disorders of brain; Z86.718 Personal history of other venous thrombosis and embolism; Z79.01 Long term (current) use of anticoagulants; Z20.822 Contact with and (suspected) exposure to COVID-19; I10 Essential (primary) hypertension; Z88.6 Allergy status to analgesic agent; Z88.0 Allergy status to penicillin; Z88.2 Allergy status to sulfonamides; Z88.8 Allergy status to other drugs, medicaments and biological substances; F32.9 Major depressive disorder, single episode, unspecified
CPT/HCPCS: 36415; 70450; 71045; 80048; 80076; 80299; 80307; 80320; 81003; 84484; 85025; 87426; 93005; 99285; C9803; G0480

== ENCOUNTER 2022-02-26 12:29 | Emergency (ER) | payer MEDICARE, OTHER ==
[~2022-02-26] VITALS: Ht 167.6 cm; Wt 108.9 kg
[~2022-02-26 12:29] MED LIST changes: -ACET-868 PO; -ALLA266C2 TP; +DIVA-76 PO; +HALO2TAB2 PO; +HALO5TAB8 PO; +LORA-259 PO; -MAG30ORA PO; -MAGN400O6 PO
--- NOTE | 2022-02-26 12:30 | NUR ---
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
--- NOTE | 2022-02-26 12:38 | NUR ---
EKG DONE AT BED SIDE
--- NOTE | 2022-02-26 13:11 | NUR ---
DR. MAJOR at bed side
[2022-02-26] MEDS ORDERED: AMIN30LI2 PO (13:14)
[2022-02-26] MEDS ORDERED: HALO100A2 IM (13:14)
[2022-02-26] MEDS ORDERED: SENN-261 PO (13:14)
[2022-02-26] MEDS ORDERED: ATOR40TA PO (13:14)
[2022-02-26] MEDS ORDERED: BENZ1TAB7 PO (13:14)
[2022-02-26] MEDS ORDERED: NITR0.4T48 SL (13:14)
[2022-02-26] MEDS ORDERED: ACET-868 PO (13:14)
[2022-02-26] MEDS ORDERED: LEVE500T9 PO (13:14)
[2022-02-26] MEDS ORDERED: PILO5TAB10 PO (13:14)
[2022-02-26] MEDS ORDERED: BISA10SU11 RC (13:14)
[2022-02-26] MEDS ORDERED: ACET-2605 PO (13:14)
[2022-02-26] MEDS ORDERED: OLAN2.5T3 PO (13:14)
[2022-02-26] MEDS ORDERED: LORA-259 PO (13:14)
[2022-02-26] MEDS ORDERED: POLY17PO4 PO (13:14)
[2022-02-26] MEDS ORDERED: CLON0.1T PO (13:14)
[2022-02-26] MEDS ORDERED: MELA5TAB PO (13:14)
[2022-02-26] MEDS ORDERED: METH5TAB6 PO (13:14)
[2022-02-26] MEDS ORDERED: ISOS10TA2 PO (13:14)
[2022-02-26] MEDS ORDERED: MAGN400O6 PO (13:14)
[2022-02-26] MEDS ORDERED: MIRT-90 PO (13:14)
[2022-02-26] MEDS ORDERED: CHOL100043 PO (13:14)
[2022-02-26] MEDS ORDERED: NA P133E RC (13:14)
[2022-02-26] MEDS ORDERED: MAG30ORA PO (13:14)
[2022-02-26] MEDS ORDERED: MULT-447 PO (13:14)
--- NOTE | 2022-02-26 13:25 | NUR ---
BLood tach at bed side unaler to drow blood
--- NOTE | 2022-02-26 13:51 | NUR ---
UNABLE TO INSERTED IV LINE
[2022-02-26 14:42] LABS: BASOPHILS % (AUTO) 0.6 % (0.0-2.0); HEMATOCRIT 35 % (33-45); HEMOGLOBIN 11.3 g/dL (11.5-14.8); LYMPHOCYTES # (AUTO) 1.2 K/uL (0.8-4.8); MEAN CORPUSCULAR HGB CONC 33 g/dl (31.0-36.0); MEAN CORPUSCULAR VOLUME 91 fL (82-100); MONOCYTES # (AUTO) 0.5 K/uL (0.1-1.30); MONOCYTES % (AUTO) 10.7 % (2.0-12.0); NEUTROPHILS # (AUTO) 3.2 K/uL (1.8-8.9); NEUTROPHILS % (AUTO) 63.7 % (43.0-81.0); PLATELET COUNT (AUTO) 196 K/uL (150-450); RED BLOOD CELL COUNT(AUTO) 3.82 MIL/uL (4.0-5.2); WHITE BLOOD COUNT (AUTO) 5.1 K/uL (4.3-11.0)
[2022-02-26 15:13] LABS: CALCIUM, SERUM 8.8 mg/dL (8.5-10.1); CARBON DIOXIDE 27 mmol/L (21-32); CHLORIDE 108 mmol/L (98-107); CREATININE 0.9 mg/dL (0.6-1.3); GLUCOSE 122 mg/dL (74-106); POTASSIUM 3.7 mmol/L (3.5-5.1); SODIUM SERUM 141 mmol/L (136-145); UREA NITROGEN, BLOOD 23 mg/dL (7-18)
[2022-02-26 15:19] LABS: ALANINE AMINOTRANSFERASE 23 U/L (12-78); ALBUMIN 3.1 g/dL (3.4-5.0); ALKALINE PHOSPHATASE 87 U/L (46-116); ASPARTATE AMINOTRANSFERASE 14 U/L (15-37); BILIRUBIN,DIRECT 0.1 mg/dL (0.0-0.2); BILIRUBIN,TOTAL 0.3 mg/dL (0.2-1.0)
--- NOTE | 2022-02-26 15:26 | NUR ---
Lana for lab result
--- NOTE | 2022-02-26 16:32 | NUR ---
DINESS CHEST PAIN or sob
--- NOTE | 2022-02-26 17:34 | NUR ---
PT REFUSED 2 ND TOROBLIN BLOOD TO DROW BY Lab tach
--- NOTE | 2022-02-26 18:00 | NUR ---
PT REFUSED to SIGN AMA FORM
--- NOTE | 2022-02-26 18:24 | NUR ---
Blood drow for 2 nd troponine by lab tach at bed side
--- NOTE | 2022-02-26 19:34 | NUR ---
HAND OFF WANDA SAAVEDRA
--- NOTE | 2022-02-26 19:40 | NUR ---
RECIEVED REPORT FROM REBA SAAVEDRA FOR [facility]
--- NOTE | 2022-02-26 19:46 | NUR ---
[facility] ETA: [phone]
--- NOTE | 2022-02-26 20:07 | NUR ---
PT IS ALERT, NON AMBULATORY, DENIES ANY DISCOMFORT AT THIS TIME. CONNECTED TO MONITOR. VSS. WILL CONTINUE TO MONITOR
--- NOTE | 2022-02-26 21:31 | NUR ---
GAVE REPORT TO BECKY AT [facility]
--- NOTE | 2022-02-26 21:35 | NUR ---
[facility] AT BED SIDE
[2022-02-26 22:16] VITALS: BP 148/81
== END 2022-02-26 22:16 ==
LOC: ER 12:33
DX: R07.89 Other chest pain (principal); I10 Essential (primary) hypertension; F41.9 Anxiety disorder, unspecified; F32.A Depression, unspecified; Z88.0 Allergy status to penicillin; Z88.2 Allergy status to sulfonamides; Z88.8 Allergy status to other drugs, medicaments and biological substances; Z79.899 Other long term (current) drug therapy
CPT/HCPCS: 36415; 71045-TC; 80048-TC; 80076-TC; 84484-TC; 85025-TC; 85378-TC; J7120